=== PATIENT | female | born 1995 | race Caucasian/White ===

== ENCOUNTER 2017-07-20 15:22 | Emergency (ER) | payer MEDICAID ==
[~2017-07-20] VITALS: Ht 172.7 cm; Wt 92.3 kg
[~2017-07-20 15:22] MED LIST: FLEXERIL 1010 MG/TAB PO; LEVAQUIN 5500 MG/TA1 PO; NO HOME MEDICATIONS; PERCOCET 325 MG1 TA2 PO
[2017-07-20 15:24] VITALS: BP 126/82; PULSE 91; TEMP 97.8
[2017-07-20] MEDS ORDERED: AMOXICILLIN 50500 MG PO (15:50)
== END 2017-07-20 15:55 | disposition home or self-care (01) ==
LOC: COL.ER 15:22
DX: K08.89 Other specified disorders of teeth and supporting structures (principal)

== ENCOUNTER 2019-01-15 19:41 | Emergency (ER) | payer MEDICAID ==
[~2019-01-15] VITALS: Ht 170.2 cm; Wt 97.3 kg
[~2019-01-15 19:41] MED LIST changes: +AMOXICILLIN 50500 MG PO
[2019-01-15 19:52] VITALS: BP 134/91; TEMP 98.6
[2019-01-15] MEDS ORDERED: AMOXICILLIN875 MG PO (21:52)
[2019-01-15 22:45] VITALS: PULSE 84
== END 2019-01-15 22:46 | disposition home or self-care (01) ==
LOC: COL.ER 19:41
DX: J32.9 Chronic sinusitis, unspecified (principal); R51 Headache
CPT/HCPCS: J1885

== ENCOUNTER 2019-04-27 04:11 | Emergency (ER) | payer SELFPAY ==
[~2019-04-27] VITALS: Ht 172.7 cm; Wt 97.7 kg
[~2019-04-27 04:11] MED LIST changes: +AMOXICILLIN875 MG PO
[2019-04-27 04:15] VITALS: BP 119/81; TEMP 97.6
[2019-04-27 05:44] VITALS: PULSE 98
[2019-04-27] MEDS ORDERED: FLEXERIL 1010 MG/TAB PO (05:46)
== END 2019-04-27 05:50 | disposition home or self-care (01) ==
LOC: COL.ER 04:11
DX: M79.631 Pain in right forearm (principal); M79.632 Pain in left forearm; F17.210 Nicotine dependence, cigarettes, uncomplicated

== ENCOUNTER 2021-04-16 20:13 | Emergency (ER) | payer MEDICAID ==
[~2021-04-16] VITALS: Ht 172.7 cm; Wt 97.7 kg
[2021-04-16 20:47] LABS: STREP SCREEN NEGATIVE
[2021-04-16 21:55] LABS: BASO % 0.2 % (0.0-2.0); EOS # 0.1 (0.0-0.7); EOS % 0.7 % (0-4.0); GRAN # 9.2 (1.4-6.5); GRAN % 68.4 % (42.2-75.2); HEMATOCRIT 38.2 % (37.0-47.0); HEMOGLOBIN 12.5 g/dl (12.5-16.0); LYMPH # 2.9 (1.2-3.4); LYMPH % 21.4 % (20.0-51.0); MEAN CELL VOLUME 89 fl (80.0-100.0); MEAN CORPUSCULAR HEMOGLOBIN 29 pg (27.0-31.0); MEAN CORPUSCULAR HGB CONC 33 g/dl (33.0-37.0); MEAN PLATELET VOLUME 9.4 fl (7.4-10.4); MONO # 1.2 (0.1-0.6); MONO % 9.1 % (1.7-9.3); PLATELET COUNT 320 K/mm3 (130-400); RED BLOOD COUNT 4.28 M/mm3 (4.10-5.30); REDCELL DISTRIBUTION WIDTH-CV 13.2 % (11.5-14.5)
[2021-04-16 22:09] LABS: ALBUMIN 4.2 gm/dL (3.5-5.0); BILIRUBIN,TOTAL 0.4 mg/dL (0.0-1.0); C-REACTIVE PROTEIN 4.6 mg/dL (0.0-0.9); CALCIUM 9.4 mg/dL (8.4-10.2); CREATININE, serum 0.65 (0.52-1.25); POTASSIUM 3.7 mmol/L (3.4-5.0); TOTAL PROTEIN 7.8 gm/dL (6.4-8.2)
[2021-04-16 22:24] LABS: MONOSCREEN NEGATIVE
[2021-04-16 23:17] VITALS: BP 120/68; PULSE 86; TEMP 98.6
== END 2021-04-16 23:17 | disposition home or self-care (01) ==
LOC: COL.ER 20:13
PROVIDERS: Nurse Practitioner
DX: J03.90 Acute tonsillitis, unspecified (principal); F17.210 Nicotine dependence, cigarettes, uncomplicated; Z20.822 Contact with and (suspected) exposure to COVID-19
CPT/HCPCS: J1885; J7030

== ENCOUNTER → 2022-03-23 | Outpatient (CLI) | payer MEDICAID | LOC: MC.RAD 13:54 | DX: N63.20 Unspecified lump in the left breast, unspecified quadrant (principal) ==

== ENCOUNTER 2022-06-30 08:27 | Emergency (ER) | payer MEDICAID ==
[~2022-06-30] VITALS: Ht 172.7 cm; Wt 85.0 kg
[2022-06-30 08:44] VITALS: TEMP 100
[2022-06-30 11:09] LABS: STREP SCREEN NEGATIVE
[2022-06-30 12:07] VITALS: BP 113/70; PULSE 96
== END 2022-06-30 12:07 | disposition home or self-care (01) ==
LOC: COL.ER 08:27
PROVIDERS: Family Medicine
DX: B34.9 Viral infection, unspecified (principal); F17.200 Nicotine dependence, unspecified, uncomplicated; Z86.16 Personal history of COVID-19; Z20.822 Contact with and (suspected) exposure to COVID-19
CPT/HCPCS: J7030